=== PATIENT | male | born 1990 | race African-American/Black ===

== ENCOUNTER 2021-08-13 13:19 | Emergency (ER) | payer SELFPAY ==
[2021-08-13] MEDS ORDERED: IPRATROPIUM BROM 0.5MG/2.5ML ONE (14:15)
[2021-08-13] MEDS ORDERED: ALBUTEROL 2.5 MG/3 ML NEB SOL ONE (14:15)
[2021-08-13] MEDS ORDERED: prednisoLONE 15 MG/5 ML OSYR ONE (14:15)
--- NOTE | 2021-08-13 15:37 | EDPHYS ---
Physician Documentation [facility] Name: Reese Watters Age: 31 yrs Sex: Male : 1990 Arrival Date: 08/13/2021 Time: 13:28 Bed 9 Private MD: ED Physician Arturo Hogan HPI: 08/13 14:07 This 31 yrs old Black Male presents to ER via Ambulatory with complaints of Asthma cp Exacerbation. 14:07 The patient presents to the emergency department with wheezing, Current therapy: cp albuterol inhaler, albuterol nebs, steroid inhaler, that began ran out of medications, the patient was reported to have chest tightness, non-productive cough. Onset: The symptoms/episode began/occurred today. Associated signs and symptoms: Pertinent negatives: fever, headache, sore throat, productive cough. Historical: - Allergies: 13:53 SHELLFISH; vg1 - Home Meds: 13:53 Albuterol Inhl [Active]; Albuterol Nebulizer [Active]; Prednisone Oral [Active]; vg1 - PMHx: 13:53 Asthma; vg1 - PSHx: 13:53 None; vg1 - Immunization history:: Client reports receiving the 2nd dose of the Covid vaccine. - Social history:: Smoking status: Patient denies any tobacco usage or history of. ROS: 14:15 Constitutional: Negative for body aches, chills, fever, poor PO intake. cp 14:15 Eyes: Negative for injury, pain, redness, and discharge. cp 14:15 ENT: Negative for drainage from ear(s), ear pain, sore throat, difficulty swallowing, difficulty handling secretions. 14:15 Cardiovascular: Negative for chest pain, edema, palpitations. 14:15 Respiratory: Positive for cough, with no reported sputum, shortness of breath, at rest. wheezing. 14:15 Abdomen/GI: Negative for abdominal pain, nausea, vomiting, and diarrhea. 14:15 Skin: Negative for cellulitis, rash. 14:15 Neuro: Negative for altered mental status, headache, weakness. 14:15 All other systems are negative. Exam: 14:20 Constitutional: The patient appears in no acute distress, alert, awake, cp non-diaphoretic, non-toxic, well developed, well nourished. 14:20 Head/Face: Normocephalic, atraumatic. cp 14:20 Eyes: Periorbital structures: appear normal, Conjunctiva: normal, no exudate, no cp injection, Sclera: no appreciated abnormality, Lids and lashes: appear normal, bilaterally. 14:20 ENT: External ear(s): are unremarkable, Nose: is normal, Mouth: Lips: moist, Oral mucosa: pink and intact, moist, Posterior pharynx: Airway: no evidence of obstruction, patent, Tonsils: are normal in appearance, swelling, is not appreciated, erythema, is not appreciated, exudate, is not appreciated. 14:20 Neck: ROM/movement: is normal, is supple, without pain, no range of motions limitations. 14:20 Chest/axilla: Inspection: normal, Palpation: is normal, no crepitus, no tenderness. 14:20 Cardiovascular: Rate: normal, Rhythm: regular, Edema: is not appreciated, JVD: is not appreciated. 14:20 Respiratory: the patient does not display signs of respiratory distress, Respirations: normal, no use of accessory muscles, no retractions, labored breathing, is not present, Breath sounds: decreased breath sounds, are not appreciated, stridor, is not appreciated, wheezing: expiratory that is mild, is heard diffusely. 14:20 Abdomen/GI: Exam negative for discomfort, distension, guarding, Inspection: abdomen appears normal. 14:20 Neuro: Orientation: is normal, Mentation: is normal. Vital Signs: 13:49 BP 143 / 76; Pulse 74; Resp 18; Temp 98.4; Pulse Ox 98% on R/A; Weight 132.9 kg; Height vg1 6 ft. 5 in. (195.58 cm); Pain 0/10; 14:07 BP 139 / 77; Pulse 76; Resp 18; Pulse Ox 99% on R/A; Pain 0/10; ld1 14:57 BP 106 / 81; Pulse 89; Resp 18; Pulse Ox 100% on R/A; ld1 13:49 Body Mass Index 34.74 (132.90 kg, 195.58 cm) vg1 MDM: 14:00 Patient medically screened. cp 14:30 Differential diagnosis: acute asthma, reactive airway, CHF. cp 15:36 Data reviewed: vital signs, nurses notes. cp 15:36 Counseling: I had a detailed discussion with the patient and/or guardian regarding: the cp historical points, exam findings, and any diagnostic results supporting the discharge/admit diagnosis, the need for outpatient follow up, a family practitioner, to return to the emergency department if symptoms worsen or persist or if there are any questions or concerns that arise at home. Response to treatment: the patient's symptoms have markedly improved after treatment, and as a result, I will discharge patient. Administered Medications: 14:20 Drug: Albuterol - atroVENT (ipratropium) (3:1) (2.5 mg - 0.5 mg) 3 ml Route: Nebulizer; aa5 14:20 Drug: prednisoLONE Liquid 60 mg Route: PO; aa5 Disposition: 18:49 Co-signature as Attending Physician, Arturo Hogan MD. rn Disposition Summary: 08/13/21 15:37 Discharge Ordered Location: Home cp Problem: an acute exacerbation cp Symptoms: have improved cp Condition: Stable cp Diagnosis - Unspecified asthma with (acute) exacerbation cp Followup: cp - With: Private Physician - When: 2 - 3 days - Reason: Recheck today's complaints Discharge Instructions: - Discharge Summary Sheet cp - Asthma, Adult cp - Form - Excuse from Work, School, or Physical Activity cp Forms: - Medication Reconciliation Form cp - Thank You Letter cp - Antibiotic Education cp - Prescription Opioid Use cp Prescriptions: - albuterol sulfate 90 mcg/actuation Inhalation HFA aerosol inhaler - inhale 1 puff by INHALATION route every 4-6 hours; 1 Inhaler; Refills: 0, cp Product Selection Permitted - Albuterol Sulfate 2.5 mg /3 mL (0.083 %) Inhalation Solution for Nebulization - inhale 1 unit by NEBULIZATION route every 8 hours As needed; 1 box; Refills: 0, cp Product Selection Permitted - Prednisone 20 mg Oral Tablet - take 2 tablets by ORAL route once daily for 5 days; 10 tablet; Refills: 0, cp Product Selection Permitted Signatures: Arturo Hogan MD MD rn Calderon, Audri, RN RN aa5 Rajendra Chase PA PA cp Garcia, Victoria RN RN vg1 Corrections: (The following items were deleted from the chart) 13:55 13:53 Allergies: No Known Allergies; vg1 vg1
--- NOTE | 2021-08-13 15:37 | ER ---
Nurse's Notes [facility] Name: Reese Watters Age: 31 yrs Sex: Male : 1990 Arrival Date: 08/13/2021 Time: 13:28 Bed 9 Private MD: Diagnosis: Unspecified asthma with (acute) exacerbation Presentation: 08/13 13:49 Chief complaint: Patient states: "I ran out of my medicine and Im not from here Im from [address], Im just down here working and I need a refill of my breathing treatments, inhaler and prednisone " Also states feeling SOB, denies chest pain. Coronavirus screen: Vaccine status: Patient reports receiving the 2nd dose of the covid vaccine. Client denies travel out of the [place] in the last 14 days. Ebola Screen: Patient denies exposure to infectious person. Patient denies travel to an Ebola-affected area in the 21 days before illness onset. Initial Sepsis Screen: Does the patient meet any 2 criteria? No. Patient's initial sepsis screen is negative. Does the patient have a suspected source of infection? No. Patient's initial sepsis screen is negative. Risk Assessment: Do you want to hurt yourself or someone else? Patient reports no desire to harm self or others. Onset of symptoms was August 13, 2021. 13:49 Method Of Arrival: Ambulatory [facility] 13:49 Acuity: JAGDEEP 4 vg1 Triage Assessment: 13:53 General: Appears in no apparent distress. comfortable, Behavior is calm, cooperative. vg1 Pain: Denies pain. Neuro: Level of Consciousness is awake, alert, obeys commands, Oriented to person, place, time, situation. Respiratory: Airway is patent Respiratory effort is even, unlabored, Respiratory pattern is regular. Historical: - Allergies: 13:53 SHELLFISH; vg1 - Home Meds: 13:53 Albuterol Inhl [Active]; Albuterol Nebulizer [Active]; Prednisone Oral [Active]; vg1 - PMHx: 13:53 Asthma; vg1 - PSHx: 13:53 None; vg1 - Immunization history:: Client reports receiving the 2nd dose of the Covid vaccine. - Social history:: Smoking status: Patient denies any tobacco usage or history of. Screenin:07 Abuse screen: Denies threats or abuse. Denies injuries from another. Nutritional ld1 screening: No deficits noted. Tuberculosis screening: No symptoms or risk factors identified. Fall Risk None identified. Assessment: 14:07 General: Appears in no apparent distress. comfortable, Behavior is calm, cooperative, ld1 appropriate for age. Pain: Denies pain. Neuro: Level of Consciousness is awake, alert, obeys commands, Oriented to person, place, time, situation. Cardiovascular: Capillary refill < 3 seconds Patient's skin is warm and dry. Respiratory: Airway is patent Respiratory effort is even, unlabored, Breath sounds with wheezes bilaterally. GI: Abdomen is flat, non-distended. Vital Signs: 13:49 BP 143 / 76; Pulse 74; Resp 18; Temp 98.4; Pulse Ox 98% on R/A; Weight 132.9 kg; Height vg1 6 ft. 5 in. (195.58 cm); Pain 0/10; 14:07 BP 139 / 77; Pulse 76; Resp 18; Pulse Ox 99% on R/A; Pain 0/10; ld1 14:57 BP 106 / 81; Pulse 89; Resp 18; Pulse Ox 100% on R/A; ld1 13:49 Body Mass Index 34.74 (132.90 kg, 195.58 cm) vg1 ED Course: 13:28 Patient arrived in ED. mr 13:36 Rajendra Chase PA is PHCP. cp 13:36 Arturo Hogan MD is Attending Physician. cp 13:53 Triage completed. vg1 13:53 Arm band placed on. vg1 14:02 Lubna Dominique, CRISTELA is Primary Nurse. ld1 14:07 Patient has correct armband on for positive identification. Bed in low position. Call ld1 light in reach. Side rails up X2. Pulse ox on. NIBP on. Door closed. Noise minimized. Warm blanket given. 14:07 No provider procedures requiring assistance completed. ld1 15:49 Patient did not have IV access during this emergency room visit. ld1 Administered Medications: 14:20 Drug: Albuterol - atroVENT (ipratropium) (3:1) (2.5 mg - 0.5 mg) 3 ml Route: Nebulizer; aa5 14:20 Drug: prednisoLONE Liquid 60 mg Route: PO; aa5 Outcome: 15:37 Discharge ordered by . cp 15:49 Discharged to home ambulatory. ld1 15:49 Condition: stable 15:49 Discharge instructions given to patient, Instructed on discharge instructions, follow up and referral plans. medication usage, Demonstrated understanding of instructions, follow-up care, medications, Prescriptions given X 3. 15:49 Patient left the ED. ld1 Signatures: PaulAriana mr NogueraVicki, RN RN aa5 Rajendra Chase PA PA cp Garcia, Victoria, RN RN vg1 Lubna Dominique RN RN ld1 Corrections: (The following items were deleted from the chart) 13:55 13:53 Allergies: No Known Allergies; vg1 vg1
[2021-08-13 17:38] VITALS: TEMP 98.4
[2021-08-13 17:43] VITALS: BP 106/81; O2SAT 100
== END 2021-08-13 15:49 | disposition home or self-care (01) ==
LOC: ER 13:19
DX: J45.901 Unspecified asthma with (acute) exacerbation (principal); Z91.013 Allergy to seafood
CPT/HCPCS: 94640; 99284; J7510